=== PATIENT | male | born 1945 | race Caucasian/White ===

== ENCOUNTER 2024-11-04 18:13 | Inpatient (IN) | payer MEDICARE, BC ==
[~2024-11-04] VITALS: Ht 170.2 cm; Wt 54.9 kg
[2024-11-04] MEDS ORDERED: POLY17PO4 GT (18:31)
[2024-11-04] MEDS ORDERED: ASPI-869 PO (18:31)
[2024-11-04] MEDS ORDERED: DOCU-141 PO (18:31)
[2024-11-04] MEDS ORDERED: OLAN5TAB70 PO (18:31)
[2024-11-04] MEDS ORDERED: FAMO-132 PO (18:31)
[2024-11-04] MEDS ORDERED: TAMS-3 PO (18:31)
[2024-11-04 19:44] LABS: BASOPHILS # (AUTO) 0.1 K/UL (0.0-0.2); BASOPHILS % (AUTO) 1.1 % (0.0-2.0); EOSINOPHILS # (AUTO) 0.1 K/uL (0.0-0.7); EOSINOPHILS % (AUTO) 0.8 % (0.0-7.0); HEMATOCRIT 31.9 % (36.7-47.1); HEMOGLOBIN 11.1 g/dL (12.5-16.3); LYMPHOCYTES # (AUTO) 1.4 K/uL (0.8-4.8); LYMPHOCYTES % (AUTO) 19.3 % (20.5-51.5); MEAN CORPUSCULAR HEMOGLOBIN 31.5 uug (23.8-33.4); MEAN CORPUSCULAR HGB CONC 35 g/dL (32.5-36.3); MEAN CORPUSCULAR VOLUME 90.6 fL (73.0-96.2); MONOCYTES # (AUTO) 0.8 K/uL (0.1-1.30); MONOCYTES % (AUTO) 10.6 % (0.0-11.0); NEUTROPHILS # (AUTO) 4.9 K/uL (1.8-8.9); NEUTROPHILS % (AUTO) 68.2 % (38.5-71.5); PLATELET COUNT (AUTO) 440 K/uL (152-348); RED BLOOD CELL COUNT(AUTO) 3.52 MIL/uL (4.06-5.63); RED CELL DISTRIBUTION WIDTH 14.4 % (12.1-16.2); WHITE BLOOD COUNT (AUTO) 7.2 K/uL (3.6-10.2)
[2024-11-04 19:45] LABS: DIFFERENTIAL COMMENT 1
[2024-11-04 19:54] LABS: CALCIUM 8.1 mg/dL (8.5-10.1); CARBON DIOXIDE 31 mmol/L (21-32); CHLORIDE 107 mmol/L (98-107); CREATININE 0.9 mg/dL (0.6-1.3); GLUCOSE 108 mg/dL (74-106); POTASSIUM 4.5 mmol/L (3.5-5.1); SODIUM SERUM 142 mmol/L (136-145); UREA NITROGEN, BLOOD 24 mg/dL (7-18)
[2024-11-04 20:02] LABS: *BILIRUBIN,URIN NEGATIVE (NEGATIVE); *BLOOD, URINE NEGATIVE (NEGATIVE); *CLARITY,URINE CLEAR (CLEAR); *COLOR,URINE YELLOW (YELLOW); *KETONES,URINE NEGATIVE (NEGATIVE); *PROTEIN,URINE NEGATIVE (NEGATIVE); LEUKOCYTE ESTERASE ,URINE NEGATIVE (NEGATIVE); NITRITE, URINE NEGATIVE (NEGATIVE); UGLUCOSE NEGATIVE (NEGATIVE)
[2024-11-04 20:06] LABS: THYROID STIMULATING HORMONE 2.269 mIU/mL (0.358-3.740)
[2024-11-04 20:08] LABS: ACETAMINOPHEN < 2.0 ug/mL (10-30); ALANINE AMINOTRANSFERASE 21 U/L (16-63); ALBUMIN 2.2 g/dL (3.4-5.0); ALKALINE PHOSPHATASE 64 U/L (50-136); ASPARTATE AMINOTRANSFERASE 13 U/L (15-37); BILIRUBIN,DIRECT 0.1 mg/dL (0.0-0.2); BILIRUBIN,TOTAL 0.3 mg/dL (0.2-1.0); TOTAL PROTEIN, SERUM 5.7 g/dL (6.4-8.2)
[2024-11-04 20:14] LABS: ETHANOL < 3 MG/DL (0-10)
[2024-11-04 20:14] LABS: *AMPHETAMINE, URINE NEGATIVE (NEGATIVE); *BARBITURATE, URINE NEGATIVE (NEGATIVE); *BENZODIAZEPINE, URINE NEGATIVE (NEGATIVE); *CANNABINOID, URINE NEGATIVE (NEGATIVE); *COCCAINE, URINE NEGATIVE (NEGATIVE); *OPIATE, URINE NEGATIVE (NEGATIVE); *PHENCYCLIDINE SCREEN,URINE NEGATIVE (NEGATIVE); FENTANYL, URINE NEGATIVE (NEGATIVE)
[2024-11-04 20:23] LABS: BACTERIA,URINE NONE SEEN /HPF (NONE SEEN); RBC,URINE NONE SEEN /HPF (0-3); SQUAMOUS EPITHELIAL CELL,UR NONE SEEN /HPF (NONE SEEN); WBC,URINE 0-3 /HPF (0-3)
[2024-11-04 22:04] VITALS: BP 112/64; TEMP 98; O2SAT 96
[2024-11-05] MEDS ORDERED: MAG HYDROX/AL HYDROX/SIMETH 30 ML LIQUID UDC PO PRN
[2024-11-05] MEDS ORDERED: MAGNESIUM HYDROXIDE 30 ML LIQUID UDC PO PRN
[2024-11-05] MEDS ORDERED: ACETAMINOPHEN 325 MG TABLET PO PRN
[2024-11-05] MEDS ORDERED: TEMAZEPAM 7.5 MG CAPSULE PO PRN ×2
[2024-11-05] MEDS ORDERED: CLONAZEPAM 0.5 MG TABLET PO PRN ×2
[2024-11-05] MEDS: BLOOD SUGAR DIAGNOSTIC 1 EACH STRIP VI ONE (00:17)
[2024-11-05 08:04] VITALS: BP 113/64; TEMP 97.6; O2SAT 100
[2024-11-05] MEDS ORDERED: OLANZAPINE 5 MG TABLET PO SCH ×2 (09:00)
[2024-11-05] MEDS: OLANZAPINE 2.5 MG TABLET PO SCH (10:12)
[2024-11-05] MEDS ORDERED: IOHEXOL 300MG/ML 100 ML INFUS..BTL ONE (14:01)
[2024-11-05] MEDS ORDERED: SWABABLE VALVE TRANSFER SET EA MC ONE (14:01)
[2024-11-05] MEDS ORDERED: IV NORMAL SALINE 250 ML IV ONE (14:01)
[2024-11-05 16:04] VITALS: BP 149/78; TEMP 98; O2SAT 100
[2024-11-05] MEDS: ENSURE ENLIVE (VAN) 240 ML LIQUID PO SCH (17:00)
[2024-11-05] MEDS: DOCUSATE SODIUM 100 MG CAPSULE PO SCH (17:00)
[2024-11-05 20:00] VITALS: BP 102/59; TEMP 97.7; O2SAT 100
[2024-11-06] MEDS: FAMOTIDINE 20 MG TABLET PO SCH (06:41)
[2024-11-06 08:04] VITALS: BP 124/76; TEMP 97.7; O2SAT 100
[2024-11-06] MEDS: ASPIRIN EC 81 MG TABLET.DR PO SCH (08:47)
[2024-11-06] MEDS: MIRALAX 17 GM POWD.PACK PO SCH (08:48)
[2024-11-06 16:04] VITALS: BP 120/68; TEMP 97.5; O2SAT 98
[2024-11-06 20:00] VITALS: BP 115/63; TEMP 98.1; O2SAT 97
[2024-11-06] MEDS: TAMSULOSIN HCL 0.4 MG CAP.SR.24H PO SCH (20:41)
[2024-11-07 07:53] VITALS: BP 91/62; TEMP 98; O2SAT 99
[2024-11-07 15:55] VITALS: BP 113/60; TEMP 98; O2SAT 99
[2024-11-07 20:00] VITALS: BP 127/61; TEMP 98.3; O2SAT 99
[2024-11-07] MEDS ORDERED: TAMSULOSIN HCL 0.4 MG CAP.SR.24H ONE (20:37)
[2024-11-08 09:14] VITALS: BP 107/54; TEMP 97.8; O2SAT 99
[2024-11-08 15:26] VITALS: BP 90/56; TEMP 98; O2SAT 98
[2024-11-08 20:00] VITALS: BP 91/52; TEMP 98.4; O2SAT 95
[2024-11-08 20:30] VITALS: BP 117/66
[2024-11-09 08:04] VITALS: BP 110/59; TEMP 98.1; O2SAT 98
[2024-11-09 16:04] VITALS: BP 90/53; TEMP 97.5; O2SAT 96
[2024-11-09 20:00] VITALS: BP 97/57; TEMP 98.4; O2SAT 98
[2024-11-10 07:58] VITALS: BP 121/71; TEMP 98; O2SAT 99
[2024-11-10 16:32] VITALS: BP 116/53; TEMP 97.8; O2SAT 98
[2024-11-10 20:34] VITALS: BP 95/54; TEMP 98.5; O2SAT 97
[2024-11-11 08:14] VITALS: BP 109/62; TEMP 98.1; O2SAT 96
[2024-11-11 16:07] VITALS: BP 111/62; TEMP 98.1; O2SAT 97
[2024-11-11 20:00] VITALS: BP 91/48; TEMP 97.9; O2SAT 97
[2024-11-12 05:56] VITALS: BP 91/39; TEMP 97.6; O2SAT 97
[2024-11-12 08:00] VITALS: BP 96/58; TEMP 98.4; O2SAT 98
[2024-11-12 15:00] VITALS: BP 115/71; TEMP 98.2; O2SAT 100
== END 2024-11-12 20:43 | DRG 885 ==
LOC: ER 18:13 → GPS 21:23 → GPSOV3 11-11 14:00
PROVIDERS: ADMIT Psychiatry & Neurology Psychiatry; ATTEND Internal Medicine
DX: F29 Unspecified psychosis not due to a substance or known physiological condition (principal); E44.0 Moderate protein-calorie malnutrition; Z68.1 Body mass index [BMI] 19.9 or less, adult; E88.09 Other disorders of plasma-protein metabolism, not elsewhere classified; Z85.038 Personal history of other malignant neoplasm of large intestine; Z79.82 Long term (current) use of aspirin; Z79.899 Other long term (current) drug therapy; D64.9 Anemia, unspecified; N40.0 Benign prostatic hyperplasia without lower urinary tract symptoms; I10 Essential (primary) hypertension; F41.9 Anxiety disorder, unspecified; J45.909 Unspecified asthma, uncomplicated; E86.0 Dehydration; F50.89 Other specified eating disorder
CPT/HCPCS: 36415; 70450; 71260; 84443; 85025; A4663; A6213; G0480; Q9967